=== PATIENT | male | born 1980 | race Caucasian/White ===

== ENCOUNTER → 2017-11-22 | Outpatient (CLI) | payer BC ==
[~2017-11-22] MED LIST: AMOXICILLIN 50500 MG PO; LOMOTIL 0.025 M1 TAB PO; NO HOME MEDICATIONS; PREDNISONE20 MG PO; TRIAMCINOLONE0.1% TP; ULTRAM 50MG TAB50 MG PO; VENTOLIN0.09 MG IH; ZOFRAN 4MG T4 MG/TAB PO
== END ==
LOC: COL.RAD 09:38
DX: R10.31 Right lower quadrant pain (principal)

== ENCOUNTER 2018-09-29 23:00 | Emergency (ER) | payer BC ==
[~2018-09-29] VITALS: Ht 182.9 cm; Wt 93.6 kg
[2018-09-29 23:04] VITALS: TEMP 97.8
[2018-09-29 23:44] LABS: BASO % 0.6 % (0.0-2.0); EOS # 0.6 (0.0-0.7); EOS % 8.2 % (0-4.0); GRAN # 3.5 (1.4-6.5); GRAN % 48.4 % (42.2-75.2); HEMATOCRIT 45.1 % (42.0-52.0); HEMOGLOBIN 15.2 g/dl (13.5-18.0); LYMPH # 2.3 (1.2-3.4); LYMPH % 32.1 % (20.0-51.0); MEAN CELL VOLUME 86 fl (80.0-100.0); MEAN CORPUSCULAR HEMOGLOBIN 29 pg (27.0-31.0); MEAN CORPUSCULAR HGB CONC 34 g/dl (33.0-37.0); MEAN PLATELET VOLUME 10.7 fl (7.4-10.4); MONO # 0.8 (0.1-0.6); MONO % 10.4 % (1.7-9.3); PLATELET COUNT 251 K/mm3 (130-400); RED BLOOD COUNT 5.27 M/mm3 (4.20-5.60); REDCELL DISTRIBUTION WIDTH-CV 13.5 % (11.5-14.5)
[2018-09-29 23:55] LABS: ALANINE AMINOTRANSFERASE 22 U/L (21-72); ALBUMIN 4.1 gm/dL (3.5-5.0); ALKALINE PHOSPHATASE 101 U/L (50-136); ANION GAP 8 mmol/L (7-16); AST,SGOT 28 U/L (15-37); BILIRUBIN,TOTAL 0.7 mg/dL (0.0-1.0); BLOOD UREA NITROGEN 16 mg/dL (9-20); CALCIUM 9.4 mg/dL (8.4-10.2); CARBON DIOXIDE 26 mmol/L (22-30); CHLORIDE 108 mmol/L (98-107); CREATININE, serum 0.98 (0.66-1.25); GLUCOSE 117 mg/dL (74-106); POTASSIUM 3.7 mmol/L (3.4-5.0); SODIUM 142 mmol/L (137-145); TOTAL PROTEIN 7.3 gm/dL (6.4-8.2)
[2018-09-30 00:07] LABS: TROPONIN-I < 0.012 ng/mL (0.000-0.035)
[2018-09-30 00:41] VITALS: BP 115/59; PULSE 81
[2018-09-30] MEDS ORDERED: ZITHROMAX Z PA250 MG PO (00:57)
== END 2018-09-30 01:13 | disposition home or self-care (01) ==
LOC: COL.ER 23:00
PROVIDERS: Physician Assistant
DX: J40 Bronchitis, not specified as acute or chronic (principal); F17.210 Nicotine dependence, cigarettes, uncomplicated
CPT/HCPCS: J7512